=== PATIENT | male | born 2000 | race African-American/Black ===

== ENCOUNTER 2019-08-15 17:38 | Emergency (ER) | payer MEDICAID ==
[~2019-08-15] VITALS: Ht 182.9 cm; Wt 74.8 kg
[2019-08-15 18:02] VITALS: BP 122/74
== END 2019-08-15 20:19 | disposition left against medical advice (07) ==
LOC: ER 17:38
DX: K92.2 Gastrointestinal hemorrhage, unspecified (principal); Z53.21 Procedure and treatment not carried out due to patient leaving prior to being seen by health care provider

== ENCOUNTER 2019-08-15 23:16 | Emergency (ER) | payer MEDICAID ==
[~2019-08-15] VITALS: Ht 182.9 cm; Wt 74.8 kg
[2019-08-16 02:35] VITALS: BP 119/78
== END 2019-08-16 03:18 | disposition home or self-care (01) ==
LOC: ER 23:16
DX: R04.2 Hemoptysis (principal); J06.9 Acute upper respiratory infection, unspecified
CPT/HCPCS: 71046